=== PATIENT | female | born 1965 ===

== ENCOUNTER 2018-05-20 07:24 | Emergency (ER) | payer MEDICAID ==
[2018-05-20 07:31] VITALS: BMI 28.8
--- NOTE | 2018-05-20 08:15 | ED PDOC ---
Lower Extremity Pain/Injury Time Seen by Provider: 05/20/18 07:43 Chief Complaint (Provider): Left leg pain and swelling History Per: Patient History/Exam Limitations: no limitations Onset/Duration Of Symptoms: Other (x1 week) Current Symptoms Are (Timing): Still Present Additional Complaint(s): 52 year old female presents to the ED complaining of left leg pain and swelling for about 1 week. Patient reports she returned from [place] this morning after leaving on May 08. She states she was sitting a lot due to a long flight and standing a lot while travelling. She states she saw a doctor 3 weeks ago for a check up and was fine at that time. PMD: Cristel Oakley Past Medical History Reviewed: Historical Data, Nursing Documentation, Vital Signs Vital Signs: Last Vital Signs Temp 98.7 F 05/20/18 07:30 Pulse 103 H 05/20/18 07:30 Resp 18 05/20/18 07:30 BP 147/94 H 05/20/18 07:30 Pulse Ox 98 05/20/18 07:30 - Medical History PMH: No Chronic Diseases - Surgical History Surgical History: No Surg Hx - Family History Family History: States: Diabetes - Social History Current smoker - smoking cessation education provided: No Alcohol: None Drugs: Denies - Home Medications Home Medications: Ambulatory Orders Medication Instructions Recorded Rivaroxaban [Xarelto] 15 mg PO BID #42 tab 05/20/18 - Allergies Allergies/Adverse Reactions: Allergies Allergy/AdvReac Type Severity Reaction Status Date / Time No Known Allergies Allergy Verified 05/20/18 08:12 Review of Systems ROS Statement: Except As Marked, All Systems Reviewed And Found Negative Musculoskeletal: Positive for: Leg Pain (left leg pain and swelling) Physical Exam - Reviewed Nursing Documentation Reviewed: Yes Vital Signs Reviewed: Yes - Physical Exam Appears: Positive for: Non-toxic, No Acute Distress Head Exam: Positive for: ATRAUMATIC, NORMAL INSPECTION, NORMOCEPHALIC Skin: Positive for: Normal Color, Warm, Dry Eye Exam: Positive for: Normal appearance Neck: Positive for: Normal, Painless ROM Extremity: Positive for: Normal ROM, Calf Tenderness, Swelling (Left lower extremity), Other ((-) Robbi's sign) Neurologic/Psych: Positive for: Alert, Oriented. Negative for: Motor/Sensory Deficits - Laboratory Results Result Diagrams: 05/20/18 10:07 05/20/18 10:07 - ECG O2 Sat by Pulse Oximetry: 98 (RA) Pulse Ox Interpretation: Normal Medical Decision Making Medical Decision Making: Initial Impression: unilateral leg swelling Differential includes but not limited to DVT, cellulitis, and muscle tear. Initial Plan: --CMP --CBC --D Dimer --PTT --Prothrombin time --Lower extremity US Scribe Attestation: Documented by Marky Lange acting as a scribe for Eleni Crane MD. Provider Scribe Attestation: All medical record entries made by the Scribe were at my direction and per sonally dictated by me. I have reviewed the chart and agree that the record accurately reflects my personal performance of the history, physical exam, medical decision making, and the department course for this patient. I have also personally directed, reviewed, and agree with the discharge instructions and disposition. Disposition - Clinical Impression Clinical Impression: DVT (deep venous thrombosis) - Patient ED Disposition Is Patient to be Admitted: No Doctor Will See Patient In The: Office Counseled Patient/Family Regarding: Diagnosis - Disposition Referrals: [facility] [Outside] [facility] [Outside] [facility] [Outside] Disposition: Routine/Home Disposition Time: 11:30 Condition: STABLE Instructions: Deep Vein Thrombosis (Blood Clots in the Legs) Forms: [facility] ED School/Work Excuse Print Language: UPPER SORBIAN - POA Present On Arrival: None
--- NOTE | 2018-05-20 09:34 | US ---
Date of service: 05/20/2018 PROCEDURE: LEFT LOWER EXTREMITY VENOUS ULTRASOUND HISTORY: DOREEN jackson x1 week; s/p long flight COMPARISON: Bilateral lower extremity venous ultrasound 08/30/2009.. TECHNIQUE: Grayscale and duplex Doppler ultrasonography of the left lower extremity major deep veins is been performed including but not limited to graded compression and augmentation. FINDINGS: The left common femoral vein is patent without thrombosis. However, there is only partial compression of the proximal and mid left superficial femoral vein segments with only limited compressibility at the distal segment. The popliteal vein appears distended with echogenic material and is noncompressible. No active color blood flow appreciated throughout the popliteal vein with similar characteristics throughout the posterior tibial vein. Findings most compatible with nonocclusive thrombosis left superficial femoral vein and occlusive thrombosis left popliteal vein. IMPRESSION: Occlusive thrombosis left popliteal vein. Nonocclusive thrombosis left superficial femoral vein. Likely occlusive thrombosis left post tibial vein.
[2018-05-20 10:19] LABS: BASO % 0.2 % (0.0-2.0); EOS # 0.1 K/uL (0.0-0.7); EOS % 0.8 % (0.0-4.0); HEMOGLOBIN 12.8 g/dL (12.0-16.0); LYMPH # 2.6 K/uL (1.0-4.3); LYMPH % 21.5 % (20.0-40.0); MEAN CELL VOLUME 83.9 fl (81.0-99.0); MEAN CORPUSCULAR HEMOGLOBIN 27.1 pg (27.0-31.0); MEAN CORPUSCULAR HGB CONC 32.3 g/dL (33.0-37.0); MEAN PLATELET VOLUME 9.7 fl (7.2-11.7); MONO # 0.6 K/uL (0.0-0.8); MONO % 4.9 % (0.0-10.0); NEUT # 8.6 K/uL (1.8-7.0); NEUT % 72.6 % (50.0-75.0); RBC 4.7 Mil/uL (3.80-5.20); RED CELL DISTRIBUTION WIDTH 15.3 % (11.5-14.5); WHITE BLOOD COUNT 11.9 K/uL (4.8-10.8)
[2018-05-20 10:25] LABS: INR 1.1; PROTHROMBIN TIME 12.6 Seconds (9.8-13.1)
[2018-05-20 10:28] LABS: ALB/GLOB RATIO 1.1 (1.0-2.1); ALBUMIN 4.7 g/dL (3.5-5.0); ALT/SGPT 28 U/L (9-52); AST/SGOT 35 U/L (14-36); BLOOD UREA NITROGEN 21 mg/dl (7-17); CALCIUM 9.8 mg/dL (8.4-10.2); GFR NON-AFRICAN AMERICAN > 60; PARTIAL THROMBOPLASTIN TIME 37.1 Seconds (25.6-37.1)
[2018-05-20 12:57] VITALS: BP 126/77; PULSE 91; RESP 17; TEMP 98.4; O2SAT 99
== END 2018-05-20 13:45 | disposition home or self-care (01) ==
LOC: H.ER 07:24
DX: I82.403 Acute embolism and thrombosis of unspecified deep veins of lower extremity, bilateral (principal)